=== PATIENT | male | born 1945 | race Asian ===

== ENCOUNTER 2018-01-10 09:47 | Emergency (ER) | payer MEDICARE, OTHER ==
[~2018-01-10] VITALS: Ht 162.6 cm; Wt 67.3 kg
[~2018-01-10 09:47] MED LIST: ADOINT TOP; BEN25 PO; CLA10 PO; GLU500 PO; KENC TOP; PEP20 PO; PRE20 PO; PREDNISOLONE5 MG PO; ZES10 PO
[2018-01-10 10:34] VITALS: BP 150/104
== END 2018-01-10 10:30 | disposition home or self-care (01) ==
LOC: ED 09:47
DX: L30.9 Dermatitis, unspecified (principal); Z91.013 Allergy to seafood